=== PATIENT | female | born 1980 | race African-American/Black ===

== ENCOUNTER 2018-07-26 13:16 | Emergency (ER) | payer OTHER | END 2018-07-26 15:20 | disposition home or self-care (01) | LOC: JERFT 13:16 ==

== ENCOUNTER 2019-03-14 14:01 | Emergency (ER) | payer OTHER ==
[2019-03-14 14:42] VITALS: BP 104/71; PULSE 71; TEMP 97; BMI 25.8
--- NOTE | 2019-03-14 14:51 | PDOC ---
Rapid Medical Evaluation Chief Complaint: Eye Problem Medical Evaluation: Allergies Allergy/AdvReac Type Severity Reaction Status Date / Time No Known Allergies Allergy Verified 03/14/19 14:42 Vital Signs Temp Pulse Resp BP Pulse Ox 97 F L 71 18 104/71 100 03/14/19 14:39 03/14/19 14:39 03/14/19 14:39 03/14/19 14:39 03/14/19 14:39 03/14/19 14:50 Pt c/o: left eye injury, no with redness and discomfort, no visual changes Pt on brief exam: mild erythema to sclera, + tearing, EOMI Pt ordered for: none pt to proceed to the ED Discharge Disposition - Diagnosis Eye pain, Corneal abrasion - Discharge Dispostion Disposition: HOME Condition at time of disposition: Stable - Prescriptions Prescriptions: Tobramycin 0.3% Ophth Soln [Tobrex Ophthalmic Solution -] 1 drop OS Q4HWA 5 Days #1 bottle - Referrals Referrals: Nomi Jansen MD [Staff Physician] - Rosie Whaley MD [Primary Care Provider] - - Patient Instructions Additional Instructions: Return to the emergency room for worsening symptoms and without fail follow-up with ophthalmology tomorrow. Please use the antibiotic eyedrops as directed. You have a large corneal abrasion which requires ophthalmology follow-up in consultation - Post Discharge Activity
[2019-03-14] MEDS ORDERED: TETRACAINE 0.5% HCL 0.6ML DROPPER.BOTTLE OS ONE (16:40)
[2019-03-14] MEDS ORDERED: TETRACAINE 0.5% OPHTH SOLN 2 ML BOTTLE ONE (16:41)
[2019-03-14] MEDS ORDERED: FLUORESCEIN NA 1 EA STRIP ONE (16:41)
--- NOTE | 2019-03-14 16:53 | PDOC ---
History of Present Illness - General Chief Complaint: Eye Problem Stated Complaint: EYE PROBLEM Time Seen by Provider: 03/14/19 14:50 - History of Present Illness Initial Comments: [id number] female presents for evaluation of left eye irritation. She states she was struck in the left eye while putting away shoes last night Past History - Past Medical History Allergies/Adverse Reactions: Allergies Allergy/AdvReac Type Severity Reaction Status Date / Time No Known Allergies Allergy Verified 03/14/19 14:42 Home Medications: Ambulatory Orders Levothyroxine [Synthroid -] 150 mcg PO DAILY 04/26/13 Tobramycin 0.3% Ophth Soln [Tobrex Ophthalmic Solution -] 1 drop OS Q4HWA 5 Days #1 bottle 03/14/19 Anemia: No Asthma: No Cancer: No Cardiac Disorders: No CVA: No COPD: No CHF: No Dementia: No Diabetes: No GI Disorders: No Disorders: No HTN: No Hypercholesterolemia: No Liver Disease: No Seizures: No Thyroid Disease: Yes (hyper) Other medical history: LYME - Surgical History Abdominal Surgery: Yes (BTL) Cholecystectomy: Yes - Immunization History Immunization Up to Date: Yes - Psycho Social/Smoking Cessation Hx Smoking Status: Yes Smoking History: Never smoked Have you smoked in the past 12 months: No Number of Cigarettes Smoked Daily: 3 'Breaking Loose' booklet given: 04/27/13 Hx Alcohol Use: No Drug/Substance Use Hx: No Substance Use Type: None Hx Substance Use Treatment: No Review of Systems - Review of Systems HEENTM: Yes: Eye Pain, Blurred Vision, Tearing *Physical Exam - Vital Signs Last Vital Signs Temp Pulse Resp BP Pulse Ox 97 F L 71 18 104/71 100 03/14/19 14:39 03/14/19 14:39 03/14/19 14:39 03/14/19 14:39 03/14/19 14:39 - Physical Exam 03/14/19 16:51 Tetracaine was instilled and fluorescein was stained in the left eye there is a large corneal abrasion in the center of the eye Medical Decision Making - Medical Decision Making 03/14/19 16:51 Tobramycin follow-up with ophthalmology Discharge - Discharge Information Problems reviewed: Yes Clinical Impression/Diagnosis: Eye pain, Corneal abrasion Condition: Stable Disposition: HOME - Admission No - Follow up/Referral Referrals: Thalappillil,Rosie, MD [Primary Care Provider] - Nomi Jansen MD [Staff Physician] - - Patient Discharge Instructions Additional Instructions: Return to the emergency room for worsening symptoms and without fail follow-up with ophthalmology tomorrow. Please use the antibiotic eyedrops as directed. You have a large corneal abrasion which requires ophthalmology follow-up in consultation - Post Discharge Activity
== END 2019-03-14 17:01 | disposition home or self-care (01) ==
LOC: JERFT 14:01
DX: S05.02XA Injury of conjunctiva and corneal abrasion without foreign body, left eye, initial encounter (principal); W22.8XXA Striking against or struck by other objects, initial encounter; Y93.89 Activity, other specified; Y92.038 Other place in apartment as the place of occurrence of the external cause; Y99.8 Other external cause status; E05.90 Thyrotoxicosis, unspecified without thyrotoxic crisis or storm; Z86.19 Personal history of other infectious and parasitic diseases; Z98.51 Tubal ligation status
CPT/HCPCS: 99281-25

== ENCOUNTER 2019-09-22 12:47 | Emergency (ER) | payer OTHER ==
[2019-09-22 12:57] VITALS: BP 107/67; PULSE 81; TEMP 99; BMI 27.3
[2019-09-22] MEDS ORDERED: DIPHTH,PERTUSS(ACELL),TET 0.5 ML DISP.SYRIN IM ONE ×2 (13:15→13:19)
--- NOTE | 2019-09-22 13:21 | PDOC ---
History of Present Illness - General Chief Complaint: Laceration Stated Complaint: INJURY Time Seen by Provider: 09/22/19 13:04 History Source: Patient Exam Limitations: No Limitations - History of Present Illness Initial Comments: 09/22/19 13:16 Patient is a 39-year-old female with no past medical history who presents to the ED with a laceration that she sustained to her left foot last night at about 9 PM. She states she was taking out the trash when a piece of glass in the trash caught her foot. She states she woke up and there was some blood clots coming from her foot so she came to the ED for evaluation. She denies any significant pain. She is unsure when her last tetanus booster was. Past History - Medical History Allergies/Adverse Reactions: Allergies Allergy/AdvReac Type Severity Reaction Status Date / Time No Known Allergies Allergy Verified 09/22/19 12:53 Home Medications: Ambulatory Orders Tobramycin 0.3% Ophth Soln [Tobrex Ophthalmic Solution -] 1 drop OS Q4HWA 5 Days #1 bottle 03/14/19 Levothyroxine [Synthroid -] 125 mcg PO DAILY@0700 #30 tablet 05/06/19 Anemia: No Asthma: No Cancer: No Cardiac Disorders: No CVA: No COPD: No CHF: No Dementia: No Diabetes: No GI Disorders: No Disorders: No HTN: No Hypercholesterolemia: No Liver Disease: No Seizures: No Thyroid Disease: Yes (hyper) - Surgical History Abdominal Surgery: Yes (BTL) Cholecystectomy: Yes - Reproductive History Is Patient Now?: No - Immunization History Td Vaccination: Yes TDAP Vaccination: Yes Immunization Up to Date: Yes - Psycho-Social/Smoking History Smoking Status: Yes Smoking History: Never smoked Have you smoked in the past 12 months: No Number of Cigarettes Smoked Daily: 3 If you are a former smoker, when did you quit?: 2016 'Breaking Loose' booklet given: 04/27/13 - Substance Abuse Hx (Audit-C & DAST Scrn) How often the patient has a drink containing alcohol: Never Score: In Men: 4 or > Positive; In Women: 3 or > Positive: 0 Screen Result (Pos requires Nsg. Audit-10AR): Negative In the last yr the pt used illegal drug/Rx for NonMed reason: No Score: Yes response is considered Positive: 0 Screen Result (Positive result requires Nsg. DAST-10): Negative Review of Systems - Review of Systems Comments:: 09/22/19 13:16 - Review of Systems Able to Perform ROS?: Yes Constitutional: No: Fever, Chills, Loss of Appetite, Night Sweats, Weakness HEENTM: No: Eye Pain, Vision changes, Ear Pain, Throat Pain, Throat Swelling, Mouth Pain, Difficulty Swallowing Respiratory: No: Cough, Shortness of Breath, Wheezing, Sputum Production Cardiac (ROS): No: Chest Pain, Chest Tightness, Palpitations, Irregular Heart Beat, Edema ABD/GI: No: Nausea, Vomiting, Abdominal Pain, Diarrhea : No Dysuria, No Hematuria, No Frequency, No Urgency Musculoskeletal: No: Muscle Pain, Back Pain, Joint Pain, Muscle Weakness, Neck Pain Integumentary: No: Lesions, Rash; positive: Laceration to the left foot Neurological: No: Headache, Numbness, Tingling, Weakness, Speech Difficulties *Physical Exam - Vital Signs Last Vital Signs Temp Pulse Resp BP Pulse Ox 99.0 F 81 18 107/67 100 09/22/19 12:54 09/22/19 12:54 09/22/19 12:54 09/22/19 12:54 09/22/19 12:54 - Physical Exam 09/22/19 13:17 - Physical Exam General Appearance: Nourished, Appropriately Dressed, No Distress HEENT: EOMI, Normal Voice, Hearing Grossly Normal Neck: Supple, No Lymphadenopathy (R), No Lymphadenopathy (L), No Rigidity, No Decreased range of motion Respiratory/Chest: Lungs Clear, Normal Breath Sounds. No Respiratory Distress, No Accessory Muscle Use Cardiovascular: Regular Rhythm, Regular Rate, S1, S2 Musculoskeletal: Normal Inspection. No Decreased Range of Motion Extremity: Normal Capillary Refill, Normal Inspection Integumentary: Normal Color, Dry. No Rash; 1 cm superficial laceration over the left MTP, no gaping, wound already healing, no sign of foreign body, no active bleeding, minimal tenderness to palpation. Neurologic: utilities operator II-XII NML intact, Fully Oriented, Alert, Normal Mood/Affect, Normal Response Medical Decision Making - Medical Decision Making 09/22/19 13:18 Assessment: Patient is a 39-year-old female with a superficial left foot laceration that she sustained last night at 9 PM. Plan: -Since the wound is 16 hours old, is superficial, and already healing it does not require suture repair at this time -The wound was cleaned, bacitracin applied and a bandage applied -The patient was given wound care instructions -Boostrix injection given -Patient understands and agrees with this treatment plan and she is stable for discharge. Discharge - Discharge Information Problems reviewed: Yes Clinical Impression/Diagnosis: Superficial laceration of left foot Qualifiers: Encounter type: initial encounter Qualified Code(s): S91.312A - Laceration without foreign body, left foot, initial encounter Condition: Stable Disposition: HOME - Follow up/Referral - Patient Discharge Instructions Patient Printed Discharge Instructions: DI for Avulsion Laceration (Not Requiring Sutures) Additional Instructions: Your laceration was not deep enough to require sutures. Keep the wound clean and dry. Wash the wound once daily with warm water and soap. If you apply an an tibiotic ointment, only apply for the next 2 days for optimal healing. Keep the wound covered while away from home but you may keep it uncovered while home and relaxing. - Post Discharge Activity Work/Back to School Note: Back to Work
== END 2019-09-22 13:28 | disposition home or self-care (01) ==
LOC: JERFT 12:47
PROC: 3E0234Z Introduction of Serum, Toxoid and Vaccine into Muscle, Percutaneous Approach (ICD-10-PCS; principal; 2019-09-22)
DX: S91.312A Laceration without foreign body, left foot, initial encounter (principal)
CPT/HCPCS: 90715; 99284-25

== ENCOUNTER 2020-03-29 08:56 | Emergency (ER) | payer OTHER ==
[2020-03-29 09:03] VITALS: TEMP 98.2; BMI 26.6
[2020-03-29] MEDS ORDERED: SODIUM CHLORIDE 0.9% 500 ML INFUS.BAG IV ONE (09:24)
[2020-03-29 11:18] LABS: BASO % 0.5 % (0-2.0); EOS % 1.3 % (0-4.5); HEMATOCRIT 36.9 % (32.4-45.2); HEMOGLOBIN 12.7 GM/dL (10.7-15.3); LYMPH % 26.5 % (8-40); MCH 32.8 pg (25.7-33.7); MCHC 34.5 g/dl (32.0-36.0); MEAN CELL VOLUME 95.1 fl (80-96); MEAN PLT VOLUME 7.1 fl (7.5-11.1); MONO % 6.3 % (3.8-10.2); NEUT % 65.4 % (42.8-82.8); PLATELET COUNT 260 K/MM3 (134-434); RBC 3.88 M/mm3 (3.60-5.2); RDW 12.2 % (11.6-15.6); WHITE BLOOD COUNT 4.2 K/mm3 (4.0-10.0)
[2020-03-29 11:29] LABS: INR 1.05 (0.83-1.09); PROTHROMBIN TIME (PATIENT) 12.7 SEC (9.7-13.0)
[2020-03-29 11:32] LABS: ACTIVATED PTT 27.3 SECONDS (25.2-36.5)
[2020-03-29 11:42] LABS: CHLORIDE 105 mmol/L (98-107); SODIUM 139 mmol/L (136-145)
[2020-03-29 11:44] LABS: ALBUMIN 3.8 g/dl (3.4-5.0); ANION GAP 7 MMOL/L (8-16); BLOOD UREA NITROGEN 10.9 mg/dL (7-18); CALCIUM 9.5 mg/dL (8.5-10.1); CO2 27 mmol/L (21-32); GLUCOSE,RANDOM 93 mg/dL (74-106)
[2020-03-29 11:47] LABS: CREATININE 0.8 mg/dL (0.55-1.3); SGOT/AST 23 U/L (15-37); SGPT/ALT 24 U/L (13-61)
[2020-03-29 11:49] LABS: BILIRUBIN,TOTAL 0.7 mg/dL (0.2-1); TOT PROT 7.6 g/dl (6.4-8.2)
[2020-03-29 11:50] LABS: ALK PHOS 40 U/L (45-117)
[2020-03-29 13:51] LABS: EPI CELLS 14 /uL (0-25.1); HYALINE CASTS 2 /uL (0-3.1); URINE APPEARANCE CLEAR; URINE BACTERIA 467 /uL (0-1359); URINE BILIRUBIN NEGATIVE (NEGATIVE); URINE COLOR YELLOW; URINE GLUCOSE (UA) NEGATIVE (NEGATIVE); URINE KETONE TRACE (NEGATIVE); URINE LEUK ESTERASE NEGATIVE (NEGATIVE); URINE NITRITE NEGATIVE (NEGATIVE); URINE PROTEIN NEGATIVE (NEGATIVE); URINE RBC 20 /uL (0-23.9); URINE WBC 6 /uL (0-25.8)
[2020-03-29 14:01] LABS: COCAINE, UR NEGATIVE ng/ml (CUTOFF=300); URINE BENZODIAZEPINES NEGATIVE ng/ml (CUTOFF=200)
[2020-03-29 14:02] LABS: METHADONE, UR NEGATIVE ng/ml (CUTOFF=300); OPIATES, URI NEGATIVE ng/ml (CUTOFF=300); URINE AMPHETAMINES NEGATIVE ng/ml (CUTOFF=500); URINE BARBITURATES NEGATIVE ng/ml (CUTOFF=200)
[2020-03-29 14:05] LABS: PHENCYCLIDINE,URINE POSITIVE ng/ml (CUTOFF=25)
[2020-03-29 17:05] VITALS: BP 116/66; PULSE 78
== END 2020-03-29 17:00 | disposition home or self-care (01) ==
LOC: JER 08:56
DX: S09.90XA Unspecified injury of head, initial encounter (principal); R55 Syncope and collapse
CPT/HCPCS: 36415; 70450-TC; 73030-TC-RT-FY; 73070-TC-RT-FY; 73110-TC-RT-FY; 73130-TC-RT-FY; 80053; 80307; 81003; 84484; 85025; 85610; 85730; 93005; 93010; 99285-25; C9803; U0003

== ENCOUNTER 2020-11-11 11:33 | Emergency (ER) | payer OTHER ==
[2020-11-11 11:49] VITALS: TEMP 98.7; BMI 30.5
[2020-11-11] MEDS ORDERED: ACETAMINOPHEN 500 MG TABLET (FP) PO ONE (12:36)
[2020-11-11] MEDS ORDERED: ACETAMINOPHEN 500 MG TABLET (FP) ONE (12:42)
[2020-11-11 14:28] VITALS: BP 126/83; PULSE 68
[2020-11-11] MEDS ORDERED: IBUPROFEN 400 MG TABLET (FP) PO ONE ×2 (14:38→14:41)
== END 2020-11-11 14:55 | disposition home or self-care (01) ==
LOC: JER 11:33
DX: S00.83XA Contusion of other part of head, initial encounter (principal); W01.198A Fall on same level from slipping, tripping and stumbling with subsequent striking against other object, initial encounter
CPT/HCPCS: 70486-TC; 99284-25

== ENCOUNTER 2020-11-27 12:40 | Emergency (ER) | payer OTHER ==
[2020-11-27 13:10] VITALS: BP 131/94; PULSE 80; TEMP 98.2; BMI 29.6
[2020-11-27] MEDS ORDERED: SODIUM CHLORIDE 0.9% 500 ML INFUS.BAG IV ONE (14:34)
[2020-11-27 15:03] LABS: BASO % 1.3 % (0-2.0); EOS % 2.7 % (0-4.5); HEMATOCRIT 38.3 % (32.4-45.2); HEMOGLOBIN 13.1 GM/dL (10.7-15.3); LYMPH % 39.5 % (8-40); MCH 31.7 pg (25.7-33.7); MCHC 34.4 g/dl (32.0-36.0); MEAN CELL VOLUME 92.1 fl (80-96); MEAN PLT VOLUME 7.1 fl (7.5-11.1); NEUT % 45.5 % (42.8-82.8); PLATELET COUNT 271 10^3/uL (134-434); RBC 4.15 M/mm3 (3.60-5.2); RDW 13.1 % (11.6-15.6); WHITE BLOOD COUNT 4.4 K/mm3 (4.0-10.0)
[2020-11-27 15:28] LABS: CALCIUM 9.2 mg/dL (8.5-10.1)
[2020-11-27 15:29] LABS: ALBUMIN 3.8 g/dl (3.4-5.0); BLOOD UREA NITROGEN 13.7 mg/dL (7-18)
[2020-11-27 15:32] LABS: CREATININE 0.9 mg/dL (0.55-1.3)
[2020-11-27] MEDS ORDERED: ACETAMINOPHEN 1000 MG/100 ML VIAL IVPB ONE (15:32)
[2020-11-27 15:33] LABS: BILIRUBIN,TOTAL 0.6 mg/dL (0.2-1)
[2020-11-27 17:27] LABS: URINE APPEARANCE CLEAR; URINE BILIRUBIN NEGATIVE (NEGATIVE); URINE COLOR YELLOW; URINE GLUCOSE (UA) NEGATIVE (NEGATIVE); URINE KETONE NEGATIVE (NEGATIVE); URINE LEUK ESTERASE NEGATIVE (NEGATIVE); URINE NITRITE NEGATIVE (NEGATIVE); URINE PROTEIN NEGATIVE (NEGATIVE)
[2020-11-27] MEDS ORDERED: ACETAMINOPHEN INJECTION 100 ML IVPB ONE (18:22)
[2020-11-27 19:23] LABS: ALBUMIN 3.7 g/dl (3.4-5.0); CALCIUM 8.9 mg/dL (8.5-10.1)
[2020-11-27 19:24] LABS: BLOOD UREA NITROGEN 14.2 mg/dL (7-18)
[2020-11-27 19:27] LABS: CREATININE 0.7 mg/dL (0.55-1.3)
[2020-11-27 19:37] LABS: BILIRUBIN,TOTAL 0.5 mg/dL (0.2-1)
== END 2020-11-27 20:00 | disposition home or self-care (01) ==
LOC: JER 12:40
PROC: 3E0333Z Introduction of Anti-inflammatory into Peripheral Vein, Percutaneous Approach (ICD-10-PCS; principal; 2020-11-27)
DX: R41.0 Disorientation, unspecified (principal)
CPT/HCPCS: 36415; 70450-TC; 80053; 81003; 82140; 85025; 87086; 99284-25; J0131

== ENCOUNTER 2020-12-05 09:49 | Inpatient (IN) | payer OTHER ==
[2020-12-05 10:29] VITALS: BMI 20.9
[2020-12-05] MEDS ORDERED: guaiFENesin 200 MG/10 ML 10 ML UNIT-DOSE CUPS PO PRN (16:20)
[2020-12-05] MEDS ORDERED: P-EPHED 60MG/TRIPROLIDI 2.5MG TABLET PO PRN (16:20)
[2020-12-05] MEDS ORDERED: MAGNESIUM CITRATE 300 ML BOTTLE PO PRN (16:20)
[2020-12-05] MEDS ORDERED: LOPERAMIDE HCL 2 MG CAPSULE PO PRN (16:20)
[2020-12-05] MEDS ORDERED: hydrOXYzine PAMOATE 25 MG CAPSULE (FP) PO PRN (16:20)
[2020-12-05] MEDS ORDERED: ACETAMINOPHEN 325 MG TABLET (FP) PO PRN (16:20)
[2020-12-05] MEDS ORDERED: MAG HYDROX/AL HYDROX/SIMETH 30 ML UNIT-DOSE CUP PO PRN (16:20)
[2020-12-05] MEDS ORDERED: IBUPROFEN 400 MG TABLET (FP) PO PRN (16:20)
[2020-12-05] MEDS ORDERED: MAGNESIUM HYDROX 2400MG/30ML ORAL SUSPENSION 30 ML CUP PO PRN (16:20)
[2020-12-05] MEDS ORDERED: MELATONIN 5 MG TABLETS PO SCH (22:00)
[2020-12-05] MEDS ORDERED: THIAMINE HCL 100 MG TABLET (FP) PO SCH (22:00)
[2020-12-05] MEDS ORDERED: TUBERCULIN PPD 5 TU/0.1ML VIAL ID ONE ×2 (22:09→23:15)
[2020-12-06] MEDS ORDERED: PT OWN MED DRAWER 7, Y5N ONE (06:31)
[2020-12-06] MEDS ORDERED: LEVOTHYROXINE NA 125 MCG TABLET (FP) PO SCH (07:00)
[2020-12-06 07:27] VITALS: BP 129/81; PULSE 73; TEMP 97.7
[2020-12-06] MEDS ORDERED: PRENATAL VITAMINS W/ FOLIC ACID TABLET (FP) PO SCH (10:00)
[2020-12-06 11:24] LABS: HEMATOCRIT 30.3 % (32.4-45.2); HEMOGLOBIN 10.9 GM/dL (10.7-15.3); MCH 32.5 pg (25.7-33.7); MEAN CELL VOLUME 90.3 fl (80-96); PLATELET COUNT 213 10^3/uL (134-434); RBC 3.35 M/mm3 (3.60-5.2); RDW 12.8 % (11.6-15.6); WHITE BLOOD COUNT 2.8 K/mm3 (4.0-10.0)
[2020-12-06 11:34] LABS: ALBUMIN 3.2 g/dl (3.4-5.0); BLOOD UREA NITROGEN 10.9 mg/dL (7-18); CALCIUM 8.8 mg/dL (8.5-10.1)
[2020-12-06 11:37] LABS: CREATININE 0.8 mg/dL (0.55-1.3)
[2020-12-06 11:38] LABS: BILIRUBIN,TOTAL 0.6 mg/dL (0.2-1)
[2020-12-06 11:39] LABS: TOT PROT 6.7 g/dl (6.4-8.2)
[2020-12-06] MEDS: TOBRAMYCIN 0.3% OPHTH SOLN 5 ML BOTTLE OS SCH ×2 (14:25→14:32)
[2020-12-06 19:42] LABS: SYPHILIS W/ RPR CONF NON-REACTIVE (NONREACTIVE)
== END 2020-12-07 06:56 | disposition short-term general hospital (02) | DRG 772 ==
LOC: YASAS 09:49 → Y5N 16:45
PROVIDERS: ADMIT Allergy & Immunology; ATTEND Allergy & Immunology
PROC: HZ42ZZZ Group Counseling for Substance Abuse Treatment, Cognitive-Behavioral (ICD-10-PCS; principal; 2020-12-05)
DX: F16.20 Hallucinogen dependence, uncomplicated (principal); E03.9 Hypothyroidism, unspecified; S09.90XA Unspecified injury of head, initial encounter; S69.81XA Other specified injuries of right wrist, hand and finger(s), initial encounter; W19.XXXA Unspecified fall, initial encounter; Z91.81 History of falling; Y92.039 Unspecified place in apartment as the place of occurrence of the external cause
CPT/HCPCS: 36415; 80053; 81025; 85027; 86780; 86803; C9803; U0003; U0005

== ENCOUNTER 2020-12-06 16:21 | Inpatient (IN) | payer OTHER ==
[2020-12-06 18:40] LABS: BASO % 0.5 % (0-2.0); EOS % 2.9 % (0-4.5); HEMATOCRIT 32.9 % (32.4-45.2); HEMOGLOBIN 11.4 GM/dL (10.7-15.3); LYMPH % 52.8 % (8-40); MCH 31.7 pg (25.7-33.7); MCHC 34.6 g/dl (32.0-36.0); MEAN CELL VOLUME 91.7 fl (80-96); MEAN PLT VOLUME 6.9 fl (7.5-11.1); MONO % 7.6 % (3.8-10.2); NEUT % 36.2 % (42.8-82.8); PLATELET COUNT 236 10^3/uL (134-434); RBC 3.59 M/mm3 (3.60-5.2)
[2020-12-06 18:58] LABS: CHLORIDE 104 mmol/L (98-107); SODIUM 138 mmol/L (136-145)
[2020-12-06 19:01] LABS: ALBUMIN 3.5 g/dl (3.4-5.0); ANION GAP 7 MMOL/L (8-16); BLOOD UREA NITROGEN 12.4 mg/dL (7-18); CO2 27 mmol/L (21-32); GLUCOSE,RANDOM 95 mg/dL (74-106)
[2020-12-06] MEDS ORDERED: IBUPROFEN 600 MG TABLET (FP) PO ONE (19:02)
[2020-12-06 19:04] LABS: CREATININE 0.8 mg/dL (0.55-1.3); SGOT/AST 204 U/L (15-37); SGPT/ALT 90 U/L (13-61)
[2020-12-06] MEDS ORDERED: IBUPROFEN 400 MG TABLET (FP) PO ONE (19:04)
[2020-12-06 19:06] LABS: BILIRUBIN,TOTAL 0.3 mg/dL (0.2-1); TOT PROT 7.6 g/dl (6.4-8.2)
[2020-12-06 19:07] LABS: ALK PHOS 36 U/L (45-117)
[2020-12-06] MEDS ORDERED: SODIUM CHLORIDE 0.9% 500 ML INFUS.BAG IV ONE ×2 (20:45→21:02)
[2020-12-06] MEDS ORDERED: DIPHTH,PERTUSS(ACELL),TET 0.5 ML DISP.SYRIN IM ONE ×2 (23:13→23:30)
[2020-12-07] MEDS ORDERED: IBUPROFEN 400 MG TABLET (FP) PO PRN (00:07)
[2020-12-07] MEDS ORDERED: SODIUM CHLORIDE 1,000 ML IV SCH (00:15)
[2020-12-07] MEDS ORDERED: ACETAMINOPHEN 325 MG TABLET (FP) PO PRN (00:23)
[2020-12-07] MEDS ORDERED: LACTATED RINGERS SOLUTION 1,000 ML/1,000 ML INFUS.BAG IV SCH (00:30)
[2020-12-07 06:31] LABS: BASO % 0.6 % (0-2.0); EOS % 4.3 % (0-4.5); HEMATOCRIT 30.1 % (32.4-45.2); HEMOGLOBIN 10.1 GM/dL (10.7-15.3); LYMPH % 47.5 % (8-40); MCH 31.4 pg (25.7-33.7); MCHC 33.5 g/dl (32.0-36.0); MEAN CELL VOLUME 93.8 fl (80-96); MEAN PLT VOLUME 7.3 fl (7.5-11.1); MONO % 9.4 % (3.8-10.2); NEUT % 38.2 % (42.8-82.8); PLATELET COUNT 207 10^3/uL (134-434); RBC 3.21 M/mm3 (3.60-5.2); WHITE BLOOD COUNT 2.7 K/mm3 (4.0-10.0)
[2020-12-07 06:52] LABS: ALBUMIN 3.1 g/dl (3.4-5.0); BLOOD UREA NITROGEN 10.4 mg/dL (7-18); CALCIUM 8.3 mg/dL (8.5-10.1); MAGNESIUM 2.2 mg/dL (1.8-2.4)
[2020-12-07 06:55] LABS: CREATININE 0.7 mg/dL (0.55-1.3); PHOSPHOROUS 2.9 mg/dL (2.5-4.9)
[2020-12-07 06:56] LABS: BILIRUBIN,TOTAL 0.4 mg/dL (0.2-1)
[2020-12-07 06:57] LABS: TOT PROT 6.3 g/dl (6.4-8.2)
[2020-12-07] MEDS ORDERED: HEPARIN NA (PORCINE) 5,000 UNITS/ML 1ML VIAL ONE (08:51)
[2020-12-07] MEDS: LEVOTHYROXINE NA 125 MCG TABLET (FP) PO SCH (08:58)
[2020-12-07] MEDS: HEPARIN NA (PORCINE) 5,000 UNITS/ML 1ML VIAL SQ SCH ×3 (08:58→21:18)
[2020-12-07] MEDS ORDERED: ENOXAPARIN NA (PORCINE) 40 MG/0.4 ML DISP.SYRIN SQ SCH (10:00)
[2020-12-07 11:17] LABS: EPI CELLS 5 /uL (0-25.1); HYALINE CASTS 0 /uL (0-3.1); URINE APPEARANCE CLEAR; URINE BACTERIA 16 /uL (0-1359); URINE BILIRUBIN NEGATIVE (NEGATIVE); URINE COLOR YELLOW; URINE GLUCOSE (UA) NEGATIVE (NEGATIVE); URINE KETONE NEGATIVE (NEGATIVE); URINE LEUK ESTERASE NEGATIVE (NEGATIVE); URINE NITRITE NEGATIVE (NEGATIVE); URINE PROTEIN NEGATIVE (NEGATIVE); URINE RBC 39 /uL (0-23.9); URINE UROBILINOGEN 0.2 mg/dL (0.2-1.0); URINE WBC 3 /uL (0-25.8)
[2020-12-07 12:55] VITALS: BMI 29.6
[2020-12-07] MEDS: LACTATED RINGERS SOLUTION 1,000 ML/1,000 ML INFUS.BAG IV SCH (17:37)
[2020-12-08] MEDS: HEPARIN NA (PORCINE) 5,000 UNITS/ML 1ML VIAL SQ SCH ×4 (05:21→21:13)
[2020-12-08] MEDS: LEVOTHYROXINE NA 125 MCG TABLET (FP) PO SCH (06:17)
[2020-12-08] MEDS: LACTATED RINGERS SOLUTION 1,000 ML/1,000 ML INFUS.BAG IV SCH ×3 (07:15→13:24)
[2020-12-08 08:31] LABS: BLOOD UREA NITROGEN 8.8 mg/dL (7-18); CALCIUM 8.8 mg/dL (8.5-10.1)
[2020-12-08 08:35] LABS: CREATININE 0.7 mg/dL (0.55-1.3)
[2020-12-08] MEDS ORDERED: LEVOTHYROXINE NA 125 MCG TABLET (FP) PO SCH (10:11)
[2020-12-09] MEDS: LACTATED RINGERS SOLUTION 1,000 ML/1,000 ML INFUS.BAG IV SCH (01:38)
[2020-12-09] MEDS: HEPARIN NA (PORCINE) 5,000 UNITS/ML 1ML VIAL SQ SCH ×2 (05:18→15:15)
[2020-12-09] MEDS ORDERED: LEVOTHYROXINE NA 25 MCG TABLET (FP) ONE (05:56)
[2020-12-09] MEDS ORDERED: LEVOTHYROXINE NA 112 MCG TABLET (FP) ONE (05:56)
[2020-12-09] MEDS ORDERED: LIOTHYRONINE SODIUM 5 MCG TABLET PO SCH (06:00)
[2020-12-09] MEDS ORDERED: LEVOTHYROXINE 112 MCG, LEVOTHYROXINE 25 MCG PO SCH (07:00)
[2020-12-09 08:26] LABS: ALBUMIN 3.3 g/dl (3.4-5.0); BLOOD UREA NITROGEN 7.5 mg/dL (7-18); CALCIUM 9.2 mg/dL (8.5-10.1)
[2020-12-09 08:30] LABS: BILIRUBIN,TOTAL 0.3 mg/dL (0.2-1); CREATININE 0.8 mg/dL (0.55-1.3)
[2020-12-09 09:03] LABS: MAGNESIUM 2.1 mg/dL (1.8-2.4)
[2020-12-09 11:49] VITALS: BP 128/72; PULSE 85; TEMP 98.2
== END 2020-12-09 16:08 | disposition home or self-care (01) | DRG 351 ==
LOC: JER 16:21 → JERBED 21:21 → J4W 12-07 11:11
DX: M62.82 Rhabdomyolysis (principal); E03.9 Hypothyroidism, unspecified; S00.83XA Contusion of other part of head, initial encounter; F12.10 Cannabis abuse, uncomplicated; F10.10 Alcohol abuse, uncomplicated; R74.01 Elevation of levels of liver transaminase levels; D72.819 Decreased white blood cell count, unspecified; D64.9 Anemia, unspecified; S60.221A Contusion of right hand, initial encounter; F16.20 Hallucinogen dependence, uncomplicated; W19.XXXA Unspecified fall, initial encounter; Y93.9 Activity, unspecified; Y92.009 Unspecified place in unspecified non-institutional (private) residence as the place of occurrence of the external cause; Y99.8 Other external cause status
CPT/HCPCS: 36415; 70450-TC; 73110-TC-RT-FY; 73130-TC-RT-FY; 80048; 80053; 81003; 82550; 82553; 82728; 83540; 83550; 83735; 83874; 84100; 84439; 84443; 84484; 84703; 85025; 87804; 90715; 93005; 93010; 97116-GP; 97161-GP; 99285-25; J1644

== ENCOUNTER 2020-12-09 16:17 | Inpatient (IN) | payer OTHER ==
[2020-12-09 17:40] VITALS: BMI 29.6
[2020-12-10] MEDS ORDERED: hydrOXYzine PAMOATE 25 MG CAPSULE (FP) PO PRN (00:06)
[2020-12-10] MEDS ORDERED: P-EPHED 60MG/TRIPROLIDI 2.5MG TABLET PO PRN (00:06)
[2020-12-10] MEDS ORDERED: MAG HYDROX/AL HYDROX/SIMETH 30 ML UNIT-DOSE CUP PO PRN (00:06)
[2020-12-10] MEDS ORDERED: NICOTINE 10 MG CARTRIDGE (INHALER) IH PRN (00:06)
[2020-12-10] MEDS ORDERED: MAGNESIUM CITRATE 300 ML BOTTLE PO PRN (00:06)
[2020-12-10] MEDS ORDERED: guaiFENesin 200 MG/10 ML 10 ML UNIT-DOSE CUPS PO PRN (00:06)
[2020-12-10] MEDS ORDERED: LOPERAMIDE HCL 2 MG CAPSULE PO PRN (00:06)
[2020-12-10] MEDS: PRENATAL VITAMINS W/ FOLIC ACID TABLET (FP) PO SCH (10:35)
[2020-12-10] MEDS: LEVOTHYROXINE 112 MCG, LEVOTHYROXINE 25 MCG PO SCH (11:44)
[2020-12-10 12:50] LABS: HIV INTERPRETATION NEGATIVE (NEGATIVE)
[2020-12-10] MEDS ORDERED: FLU VACC QS2021-22(6MOS UP)/PF 60 MCG/0.5 ML SYRINGE IM ONE (13:00)
[2020-12-10] MEDS: LIOTHYRONINE SODIUM 5 MCG TABLET PO SCH (15:41)
[2020-12-10] MEDS: MELATONIN 5 MG TABLETS PO SCH (21:15)
[2020-12-10] MEDS: THIAMINE HCL 100 MG TABLET (FP) PO SCH (21:15)
[2020-12-11] MEDS ORDERED: PT OWN MED DRAWER 7, Y5N ONE (03:06)
[2020-12-11] MEDS: LIOTHYRONINE SODIUM 5 MCG TABLET PO SCH (07:09)
[2020-12-11] MEDS: LEVOTHYROXINE 112 MCG, LEVOTHYROXINE 25 MCG PO SCH (07:53)
[2020-12-11] MEDS: PRENATAL VITAMINS W/ FOLIC ACID TABLET (FP) PO SCH (10:26)
[2020-12-11] MEDS ORDERED: DOCUSATE SODIUM 100 MG CAPSULE (FP) PO ONE (10:58)
[2020-12-11] MEDS: COLLOIDAL OATMEAL 1 BAR EACH TP PRN (12:16)
[2020-12-11] MEDS: AMMONIUM LACTATE 12% LOTION 225 GM BOTTLE TP PRN (12:16)
[2020-12-11] MEDS: DOCUSATE SODIUM 100 MG CAPSULE (FP) PO SCH ×2 (14:54→21:27)
[2020-12-11] MEDS: ACETAMINOPHEN 325 MG TABLET (FP) PO PRN (21:24)
[2020-12-11] MEDS: MELATONIN 5 MG TABLETS PO SCH (21:24)
[2020-12-11] MEDS: THIAMINE HCL 100 MG TABLET (FP) PO SCH (21:24)
[2020-12-12] MEDS ORDERED: PT OWN MED DRAWER 7, Y5N ONE (03:31)
[2020-12-12] MEDS: DOCUSATE SODIUM 100 MG CAPSULE (FP) PO SCH ×3 (06:16→21:13)
[2020-12-12] MEDS: LIOTHYRONINE SODIUM 5 MCG TABLET PO SCH (06:16)
[2020-12-12] MEDS: LEVOTHYROXINE 112 MCG, LEVOTHYROXINE 25 MCG PO SCH (07:14)
[2020-12-12] MEDS: PRENATAL VITAMINS W/ FOLIC ACID TABLET (FP) PO SCH (10:29)
[2020-12-12] MEDS: MAGNESIUM HYDROX 2400MG/30ML ORAL SUSPENSION 30 ML CUP PO PRN (10:30)
[2020-12-12] MEDS: MELATONIN 5 MG TABLETS PO SCH (21:13)
[2020-12-12] MEDS: THIAMINE HCL 100 MG TABLET (FP) PO SCH (21:13)
[2020-12-13] MEDS: LIOTHYRONINE SODIUM 5 MCG TABLET PO SCH (06:10)
[2020-12-13] MEDS: DOCUSATE SODIUM 100 MG CAPSULE (FP) PO SCH ×3 (06:10→21:10)
[2020-12-13] MEDS: LEVOTHYROXINE 112 MCG, LEVOTHYROXINE 25 MCG PO SCH (07:14)
[2020-12-13] MEDS: MAGNESIUM HYDROX 2400MG/30ML ORAL SUSPENSION 30 ML CUP PO PRN (10:29)
[2020-12-13] MEDS: PRENATAL VITAMINS W/ FOLIC ACID TABLET (FP) PO SCH (10:29)
[2020-12-13] MEDS: ACETAMINOPHEN 325 MG TABLET (FP) PO PRN (11:57)
[2020-12-13] MEDS: THIAMINE HCL 100 MG TABLET (FP) PO SCH (21:10)
[2020-12-13] MEDS: MELATONIN 5 MG TABLETS PO SCH (21:11)
[2020-12-14] MEDS: ACETAMINOPHEN 325 MG TABLET (FP) PO PRN ×3 (01:21→21:19)
[2020-12-14] MEDS ORDERED: PT OWN MED DRAWER 7, Y5N ONE (02:59)
[2020-12-14] MEDS: DOCUSATE SODIUM 100 MG CAPSULE (FP) PO SCH ×3 (06:07→21:19)
[2020-12-14] MEDS: LIOTHYRONINE SODIUM 5 MCG TABLET PO SCH (06:07)
[2020-12-14] MEDS: LEVOTHYROXINE 112 MCG, LEVOTHYROXINE 25 MCG PO SCH (07:16)
[2020-12-14] MEDS: PRENATAL VITAMINS W/ FOLIC ACID TABLET (FP) PO SCH (10:14)
[2020-12-14] MEDS: THIAMINE HCL 100 MG TABLET (FP) PO SCH (21:19)
[2020-12-14] MEDS: MELATONIN 5 MG TABLETS PO SCH (21:19)
[2020-12-15] MEDS: IBUPROFEN 400 MG TABLET (FP) PO PRN ×2 (01:04→21:51)
[2020-12-15] MEDS ORDERED: PT OWN MED DRAWER 7, Y5N ONE (06:09)
[2020-12-15] MEDS: DOCUSATE SODIUM 100 MG CAPSULE (FP) PO SCH ×3 (06:09→21:52)
[2020-12-15] MEDS: LIOTHYRONINE SODIUM 5 MCG TABLET PO SCH (06:10)
[2020-12-15] MEDS: LEVOTHYROXINE 112 MCG, LEVOTHYROXINE 25 MCG PO SCH (07:11)
[2020-12-15] MEDS: PRENATAL VITAMINS W/ FOLIC ACID TABLET (FP) PO SCH (10:25)
[2020-12-15] MEDS: MELATONIN 5 MG TABLETS PO SCH (21:52)
[2020-12-15] MEDS: THIAMINE HCL 100 MG TABLET (FP) PO SCH (21:52)
[2020-12-16] MEDS ORDERED: PT OWN MED DRAWER 7, Y5N ONE (03:11)
[2020-12-16] MEDS: LIOTHYRONINE SODIUM 5 MCG TABLET PO SCH (06:13)
[2020-12-16] MEDS: DOCUSATE SODIUM 100 MG CAPSULE (FP) PO SCH ×3 (06:13→21:17)
[2020-12-16] MEDS: LEVOTHYROXINE 112 MCG, LEVOTHYROXINE 25 MCG PO SCH (07:14)
[2020-12-16] MEDS: PRENATAL VITAMINS W/ FOLIC ACID TABLET (FP) PO SCH (10:11)
[2020-12-16] MEDS: IBUPROFEN 400 MG TABLET (FP) PO PRN ×2 (11:39→21:17)
[2020-12-16] MEDS: ACETAMINOPHEN 325 MG TABLET (FP) PO PRN (16:20)
[2020-12-16] MEDS: MELATONIN 5 MG TABLETS PO SCH (21:17)
[2020-12-16] MEDS: THIAMINE HCL 100 MG TABLET (FP) PO SCH (21:17)
[2020-12-17] MEDS ORDERED: PT OWN MED DRAWER 7, Y5N ONE (02:59)
[2020-12-17] MEDS: DOCUSATE SODIUM 100 MG CAPSULE (FP) PO SCH ×3 (06:16→21:32)
[2020-12-17] MEDS: LIOTHYRONINE SODIUM 5 MCG TABLET PO SCH (06:16)
[2020-12-17] MEDS: LEVOTHYROXINE 112 MCG, LEVOTHYROXINE 25 MCG PO SCH (07:24)
[2020-12-17] MEDS: PRENATAL VITAMINS W/ FOLIC ACID TABLET (FP) PO SCH (10:31)
[2020-12-17] MEDS: ACETAMINOPHEN 325 MG TABLET (FP) PO PRN ×2 (14:50→21:33)
[2020-12-17] MEDS: MAGNESIUM HYDROX 2400MG/30ML ORAL SUSPENSION 30 ML CUP PO PRN (20:16)
[2020-12-17] MEDS: THIAMINE HCL 100 MG TABLET (FP) PO SCH (21:32)
[2020-12-17] MEDS: MELATONIN 5 MG TABLETS PO SCH (21:32)
[2020-12-18] MEDS ORDERED: PT OWN MED DRAWER 7, Y5N ONE (03:23)
[2020-12-18] MEDS: LIOTHYRONINE SODIUM 5 MCG TABLET PO SCH (06:11)
[2020-12-18] MEDS: DOCUSATE SODIUM 100 MG CAPSULE (FP) PO SCH ×3 (06:11→21:50)
[2020-12-18] MEDS: LEVOTHYROXINE 112 MCG, LEVOTHYROXINE 25 MCG PO SCH (07:15)
[2020-12-18] MEDS: COLLOIDAL OATMEAL 1 BAR EACH TP PRN (10:18)
[2020-12-18] MEDS: PRENATAL VITAMINS W/ FOLIC ACID TABLET (FP) PO SCH (10:18)
[2020-12-18] MEDS: AMMONIUM LACTATE 12% LOTION 225 GM BOTTLE TP PRN (10:19)
[2020-12-18] MEDS ORDERED: LIDOCAINE VISCOUS 2% ORAL/TOP 15 ML UNIT-DOSE CUP MM PRN (10:45)
[2020-12-18] MEDS ORDERED: TUBERCULIN PPD 5 TU/0.1ML VIAL ID ONE (15:16)
[2020-12-18] MEDS: ACETAMINOPHEN 325 MG TABLET (FP) PO PRN (16:56)
[2020-12-18] MEDS: TETRAHYDROZOLINE HCL EYE DROPS OS PRN (21:48)
[2020-12-18] MEDS: MAGNESIUM HYDROX 2400MG/30ML ORAL SUSPENSION 30 ML CUP PO PRN (21:50)
[2020-12-18] MEDS: MELATONIN 5 MG TABLETS PO SCH (21:50)
[2020-12-18] MEDS: THIAMINE HCL 100 MG TABLET (FP) PO SCH (21:50)
[2020-12-19] MEDS ORDERED: PT OWN MED DRAWER 7, Y5N ONE (03:24)
[2020-12-19] MEDS: DOCUSATE SODIUM 100 MG CAPSULE (FP) PO SCH ×3 (06:30→21:21)
[2020-12-19] MEDS: LIOTHYRONINE SODIUM 5 MCG TABLET PO SCH (06:30)
[2020-12-19] MEDS: LEVOTHYROXINE 112 MCG, LEVOTHYROXINE 25 MCG PO SCH (06:30)
[2020-12-19] MEDS: PRENATAL VITAMINS W/ FOLIC ACID TABLET (FP) PO SCH (10:27)
[2020-12-19] MEDS: TETRAHYDROZOLINE HCL EYE DROPS OS PRN (16:53)
[2020-12-19] MEDS: THIAMINE HCL 100 MG TABLET (FP) PO SCH (21:21)
[2020-12-19] MEDS: ACETAMINOPHEN 325 MG TABLET (FP) PO PRN (21:21)
[2020-12-19] MEDS: MELATONIN 5 MG TABLETS PO SCH (21:45)
[2020-12-20] MEDS ORDERED: PT OWN MED DRAWER 7, Y5N ONE ×2 (03:57→07:10)
[2020-12-20] MEDS: LIOTHYRONINE SODIUM 5 MCG TABLET PO SCH (06:14)
[2020-12-20] MEDS: DOCUSATE SODIUM 100 MG CAPSULE (FP) PO SCH ×3 (06:14→21:59)
[2020-12-20] MEDS: TETRAHYDROZOLINE HCL EYE DROPS OS PRN (06:15)
[2020-12-20] MEDS: LEVOTHYROXINE 112 MCG, LEVOTHYROXINE 25 MCG PO SCH (07:07)
[2020-12-20] MEDS: PRENATAL VITAMINS W/ FOLIC ACID TABLET (FP) PO SCH (09:54)
[2020-12-20] MEDS: ACETAMINOPHEN 325 MG TABLET (FP) PO PRN (18:12)
[2020-12-20] MEDS: IBUPROFEN 400 MG TABLET (FP) PO PRN (21:58)
[2020-12-20] MEDS: MELATONIN 5 MG TABLETS PO SCH (21:58)
[2020-12-20] MEDS: THIAMINE HCL 100 MG TABLET (FP) PO SCH (21:58)
[2020-12-21] MEDS ORDERED: PT OWN MED DRAWER 7, Y5N ONE (03:14)
[2020-12-21] MEDS: DOCUSATE SODIUM 100 MG CAPSULE (FP) PO SCH ×3 (06:10→21:27)
[2020-12-21] MEDS: LIOTHYRONINE SODIUM 5 MCG TABLET PO SCH (06:11)
[2020-12-21] MEDS: TETRAHYDROZOLINE HCL EYE DROPS OS PRN (06:11)
[2020-12-21] MEDS: LEVOTHYROXINE 112 MCG, LEVOTHYROXINE 25 MCG PO SCH (07:13)
[2020-12-21] MEDS: IBUPROFEN 400 MG TABLET (FP) PO PRN ×2 (08:22→20:03)
[2020-12-21] MEDS: PRENATAL VITAMINS W/ FOLIC ACID TABLET (FP) PO SCH (10:12)
[2020-12-21] MEDS: ACETAMINOPHEN 325 MG TABLET (FP) PO PRN (12:46)
[2020-12-21] MEDS: MELATONIN 5 MG TABLETS PO SCH (21:27)
[2020-12-21] MEDS: THIAMINE HCL 100 MG TABLET (FP) PO SCH (21:27)
[2020-12-21] MEDS: BENZOCAINE 20 % GEL TUBE MM PRN (22:44)
[2020-12-22] MEDS: IBUPROFEN 400 MG TABLET (FP) PO PRN ×3 (01:09→16:32)
[2020-12-22] MEDS ORDERED: PT OWN MED DRAWER 7, Y5N ONE ×2 (03:20→07:09)
[2020-12-22] MEDS: DOCUSATE SODIUM 100 MG CAPSULE (FP) PO SCH ×3 (06:19→21:57)
[2020-12-22] MEDS: LIOTHYRONINE SODIUM 5 MCG TABLET PO SCH (06:19)
[2020-12-22] MEDS: LEVOTHYROXINE 112 MCG, LEVOTHYROXINE 25 MCG PO SCH (07:07)
[2020-12-22] MEDS: PRENATAL VITAMINS W/ FOLIC ACID TABLET (FP) PO SCH (09:03)
[2020-12-22] MEDS: TETRAHYDROZOLINE HCL EYE DROPS OS PRN ×2 (11:55→19:51)
[2020-12-22] MEDS: ACETAMINOPHEN 325 MG TABLET (FP) PO PRN ×2 (13:18→21:57)
[2020-12-22] MEDS: BENZOCAINE 20 % GEL TUBE MM PRN (15:00)
[2020-12-22] MEDS: MELATONIN 5 MG TABLETS PO SCH (21:57)
[2020-12-22] MEDS: THIAMINE HCL 100 MG TABLET (FP) PO SCH (21:57)
[2020-12-23] MEDS: DOCUSATE SODIUM 100 MG CAPSULE (FP) PO SCH ×3 (06:13→21:53)
[2020-12-23] MEDS: LIOTHYRONINE SODIUM 5 MCG TABLET PO SCH (06:14)
[2020-12-23] MEDS: LEVOTHYROXINE 112 MCG, LEVOTHYROXINE 25 MCG PO SCH (07:03)
[2020-12-23] MEDS: IBUPROFEN 400 MG TABLET (FP) PO PRN ×2 (07:05→16:36)
[2020-12-23 07:24] VITALS: PULSE 70
[2020-12-23] MEDS: ACETAMINOPHEN 325 MG TABLET (FP) PO PRN ×2 (10:58→21:53)
[2020-12-23] MEDS: PRENATAL VITAMINS W/ FOLIC ACID TABLET (FP) PO SCH (10:58)
[2020-12-23] MEDS: THIAMINE HCL 100 MG TABLET (FP) PO SCH (21:53)
[2020-12-23] MEDS: MELATONIN 5 MG TABLETS PO SCH (21:54)
[2020-12-24] MEDS: DOCUSATE SODIUM 100 MG CAPSULE (FP) PO SCH (06:22)
[2020-12-24] MEDS: TETRAHYDROZOLINE HCL EYE DROPS OS PRN (06:23)
[2020-12-24] MEDS: LIOTHYRONINE SODIUM 5 MCG TABLET PO SCH (06:45)
[2020-12-24] MEDS: LEVOTHYROXINE 112 MCG, LEVOTHYROXINE 25 MCG PO SCH (07:23)
[2020-12-24 08:25] VITALS: BP 113/62; TEMP 96.9
[2020-12-24] MEDS: IBUPROFEN 400 MG TABLET (FP) PO PRN (08:35)
== END 2020-12-24 09:30 | disposition home or self-care (01) | DRG 772 ==
LOC: YASAS 16:17 → Y5N 12-10 00:55
PROVIDERS: ADMIT Allergy & Immunology; ATTEND Allergy & Immunology
PROC: HZ42ZZZ Group Counseling for Substance Abuse Treatment, Cognitive-Behavioral (ICD-10-PCS; principal; 2020-12-10)
DX: F16.20 Hallucinogen dependence, uncomplicated (principal); D64.9 Anemia, unspecified; E03.9 Hypothyroidism, unspecified; K08.89 Other specified disorders of teeth and supporting structures; K02.9 Dental caries, unspecified; S09.90XA Unspecified injury of head, initial encounter; W19.XXXA Unspecified fall, initial encounter; Y92.039 Unspecified place in apartment as the place of occurrence of the external cause
CPT/HCPCS: 36415; 87389; 87811; C9803; U0003; U0005